=== PATIENT | female | born 1960 | race African-American/Black ===

== ENCOUNTER → 2017-02-02 08:54 | Outpatient (CLI) | payer MEDICAID ==
--- NOTE | 2017-02-05 08:51 | EMG ---
PATIENT:MATTHEW FOX DATE OF SERVICE: 02/02/17 MEDICAL RECORD: [id number] DATE OF : 56 LOCATION: LOIS ADMISSION DATE: REFERRING PHYSICIAN: FRANCOIS RUSSELL MD INTERPRETING PHYSICIAN: FRANCOIS RUSSELL MD DATE OF SERVICE: 02/03/2017 Referred by myself as an outpatient DATE OF EXAMINATION: 02/02/2017 ELECTROMYOGRAPHIC DATA: Electromyographic examination is limited to both upper extremities. In the right upper extremity, right median motor stimulation elicits a compound motor action potential with a distal latency of 4.7 milliseconds, peak amplitude of 4 millivolts, and calculated conduction velocity of 62 meters per second. Right ulnar motor stimulation elicits a compound motor action potential with a distal latency of 3.0 milliseconds, peak amplitude of 5 millivolts, and calculated conduction velocity of 49 meters per second. Right ulnar motor stimulation across the elbow fails to elicit evidence of conduction block at this level. Antidromic right median sensory stimulation elicits a response with a distal latency of 4.5 milliseconds, amplitude of 6 microvolts and calculated conduction velocity of 51 meters per second. Antidromic right ulnar sensory stimulation elicits a response with a distal latency of 4.0 milliseconds, amplitude of 5 microvolts and calculated conduction velocity of 40 meters per second. The right median F wave has a latency of 29 milliseconds. In the left upper extremity, left median motor stimulation elicits a compound motor action potential with a distal latency of 5.1 milliseconds, peak amplitude of 4 millivolts, and calculated conduction velocity of 51 meters per second. Left ulnar motor stimulation elicits a compound motor action potential with a distal latency of 3.3 milliseconds, peak amplitude of 5 millivolts, and calculated conduction velocity of 49 meters per second. Left ulnar motor stimulation across the elbow fails to elicit evidence of conduction block at this level. Antidromic left median sensory stimulation elicits a response with a distal latency of 5.3 milliseconds, amplitude of 3 microvolts and calculated conduction velocity of 50 meters per second. Antidromic left ulnar sensory stimulation elicits a response with a distal latency of 3.9 milliseconds, amplitude of 4 microvolts and calculated conduction velocity of 40 meters per second. The left median F wave has a latency of 30 milliseconds. Needle electrode examination is limited to both upper extremities as well. Muscles interrogated include the abductor pollicis brevis, first dorsal interosseous, abductor digiti minimi, pronator teres, biceps brachii, triceps and deltoid. There is no abnormality of insertional activity and no abnormal spontaneous activity is seen in all muscles interrogated. Motor unit potential morphology and the pattern of motor unit potential firing and recruitment is normal in all muscles sampled. INTERPRETATION: Electromyographic examination of both upper extremities is indicative of median neuropathy, at or distal to the wrists bilaterally, moderate in degree electrically bilaterally, consistent with the diagnosis of bilateral carpal tunnel syndrome. There is no electrical evidence of a ELECTROMYGRAM/NERVE CONDUCTION [id number] FOX,MATTHEW LOR superimposed cervical radiculopathy or other lesion of the lower motor neuron in the upper extremities at this time. There is no evidence of active denervation. TRANSINT:[id number] Voice Confirmation ID: [id number] DOCUMENT ID: [id number] FRANCOIS RUSSELL MD at 0851 CC: [id number] DICTATION DATE: 02/03/17 0641 REIMBURSEMENT REP: 02/03/17 [id number] DEP CLI 02/02/17 [id number] [place] [address]
== END | disposition home or self-care (01) ==
LOC: D.CN 01-19 09:00
DX: G56.01 Carpal tunnel syndrome, right upper limb (principal); M54.2 Cervicalgia